=== PATIENT | female | born 1965 | race Caucasian/White ===

== ENCOUNTER → 2024-07-20 06:25 | Day surgery (SDC) | payer BC, SELFPAY | LOC: GI 06:25 | PROVIDERS: ATTENDING PHYSICIAN Internal Medicine Gastroenterology; FAMILY PHYSICIAN Family Medicine | DX: K31.7 Polyp of stomach and duodenum (principal); R12 Heartburn; R11.0 Nausea | CPT/HCPCS: 43239; 88305 ==